=== PATIENT | female | born 1945 | race Two or more races ===

== ENCOUNTER 2024-09-05 16:38 | Emergency (ER) | payer OTHER, SELFPAY ==
[2024-09-05 17:01] VITALS: BP 153/74; PULSE 100; RESP 18; TEMP 36.6; O2SAT 96; BMI 27.4
--- NOTE | 2024-09-05 17:11 | EKG_ITS ---
[facility] Test Date: 2024-09-05 Pat Name: WOJCIECH ROMERO Department: Room: - Gender: Female [employer] Engineer: : 1945 Requested By: Lincoln Mcmahon (ISSA) Order Number: [id number] Reading MD: Lincoln Mcmahon (SECURITY OFFICER SUPERVISOR) Measurements Intervals [place] Rate: 91 P: 18 [place]: 124 QRS: -1 QRSD: 94 T: 43 QT: 349 QTc: 430 Interpretive Statements SINUS RHYTHM LEFT VENTRICULAR HYPERTROPHY AND ST-T CHANGE [VOLTAGE CRITERIA PLUS ST/T ABNORMALITY] Compared to ECG 11/05/2023 14:38:38 No significant changes /store/S0/[id number].pdf
--- NOTE | 2024-09-05 17:12 | PD.EDRME ---
Rapid Medical Screening Exam RME Arrival date/time: 09/05/24 16:38 79-year-old female presents [facility] with complaints of elevated blood sugar patient reports he was given 10 units of insulin at the doctor's office prior to arrival Chief Complaint: Recheck/Abnormal Lab/Rx Vital signs: Vital Signs Temperature 97.9 F 09/05/24 17:01 Pulse Rate 100 09/05/24 17:01 Respiratory Rate 18 09/05/24 17:01 Blood Pressure 153/74 H 09/05/24 17:01 Pulse Oximetry (%) 96 09/05/24 17:01 Oxygen Delivery Method Room Air 09/05/24 17:01
[2024-09-05 17:29] LABS: Basophils % (Auto) 1 % (0-2.5); Eosinophils # (Auto) 0.3 Thou/mm3 (0.0-0.5); Eosinophils % (Auto) 4 % (0-10); Hematocrit 38.1 % (36.0-46.0); Hemoglobin 13.5 g/dL (12.0-16.0); Immature Granulocytes % (Auto) 0 % (0-0); Immature Granulocytes Auto 0.02 Thou/mm3 (0.00-0.00); Lymphocytes # (Auto) 1.1 Thou/mm3 (1.0-4.8); Lymphocytes % (Auto) 17 % (10-50); Mean Corpuscular HGB Conc 35.4 g/dl (31.0-37.0); Mean Corpuscular Hemoglobin 30.4 pg (25.0-35.0); Mean Corpuscular Volume 86 fL (80-100); Monocytes # (Auto) 0.8 Thou/mm3 (0.0-0.8); Monocytes % (Auto) 13 % (0-12); Neutrophils # (Auto) 4.2 Thou/mm3 (1.8-7.7); Neutrophils % (Auto) 64 % (37-80); Nucleated Red Blood Cell % 0 /100 WBC (0); Platelet Count 76 Thou/mm3 (140-440); RDW Standard Deviation 46.4 fL (36.4-46.3); Red Blood Count 4.44 Miln/mm3 (4.00-5.20); White Blood Count 6.5 Thou/mm3 (3.6-11.0)
[2024-09-05 17:44] LABS: INR 1.1 (0.9-1.3); Partial Thromboplastin Time 27.3 Seconds (22.0-36.0)
[2024-09-05 17:52] LABS: Glucose Estimated Average 148 mg/dL (80-131); Hemoglobin A1C 6.8 % Hgb (4.8-6.0)
[2024-09-05 17:53] LABS: B-Type Natriuretic Peptide 26 pg/mL (0-100)
[2024-09-05 17:55] LABS: Alanine Aminotransferase 23 U/L (10-49); Albumin, Serum 4.1 gm/dL (3.4-4.8); Anion Gap 7 (7-16); Aspartate Amino Transferase 37 U/L (0-34); BUN/Creatinine Ratio 19 Ratio (12-20); Bilirubin,Total 1.8 mg/dL (0.3-1.2); Blood Urea Nitrogen 23 mg/dL (9-23); Calcium 10.3 mg/dL (8.3-10.6); Carbon Dioxide 26.6 mMol/L (20.0-31.0); Chloride 104 mMol/L (98-107); Creatinine (Component) 1.2 mg/dL (0.6-1.3); Estimated Creatinine Clearance 38.3 mL/min (>60); Glucose 285 mg/dL (74-106); Magnesium 1.9 mg/dL (1.6-2.6); Osmolality,Calculated 289 (275-295); Sodium 138 mMol/L (136-145); Total Protein 7.9 gm/dL (5.7-8.2); Troponin I < 0.020 ng/mL (0.0-0.045); eGFR 47 See Note
[2024-09-05 17:56] LABS: Albumin/Globulin Ratio 1.1 (1.2-2.2); Alkaline Phosphatase 143 U/L (46-116); Calcium (Corrected) 10.3 mg/dL (8.5-10.1); Globulin 3.8 gm/dL (2.3-3.5)
[2024-09-05 17:58] LABS: Slide Review Platelets confirmed
[2024-09-05 18:17] LABS: Collection Type, Urine Clean Catch
[2024-09-05 18:43] LABS: Bilirubin,Urine Negative (Negative); Blood,Urine Negative (Negative); Color,Urine Yellow (Lt Yel-Yel); Glucose, Urine 1+ (Negative); Hyaline Casts,Urine 1 /hpf (0-1); Ketones,Urine Trace (Negative); Leukocyte Esterase,Urine Positive (Negative); Nitrite,Urine Negative (Negative); PH,Urine 5.5 (5.0-7.0); Protein,Urine 1+ (Neg - Trace); RBC,Urine 5 /hpf (0-3); Specific Gravity,Urine 1.023 (1.001-1.035); Squamous Epithelial Cell,Urine 5 /hpf (0-5); WBC,Urine 49 /hpf (0-5)
[2024-09-05 18:45] LABS: Beta Hydroxybutyrate 0.2 mmol/L (<0.6)
[2024-09-05 18:47] LABS: Clarity,Urine Hazy (Clear/Hazy)
--- NOTE | 2024-09-05 19:04 | PD.EDRECHK ---
ED Recheck Abnl Lab Rx-RME/HPI General Chief Complaint: Recheck/Abnormal Lab/Rx Stated Complaint: SUGAR OVER [address] OFF[address] Time Seen by Provider: 09/05/24 18:55 Arrival date/time: 09/05/24 16:38 RME / HPI RME / HPI narrative: 79-year-old female patient with significant history of diabetes mellitus, liver cirrhosis, was sent to us from PCPs office, regarding blood sugar over 400. Currently patient is not having any symptoms. Patient told me that she is taking insulin. Denies any chest pain denies any vomiting denies any diarrhea denies any fever denies any cough denies any other complaints. Related Data Home Medications ?Medication ?Instructions ?Recorded ?Confirmed duloxetine 60 mg capsule,delayed 60 mg PO DAILY Depression 90 days 07/26/13 04/20/24 release (Cymbalta) ##0 rifaximin 550 mg tablet (Xifaxan) 200 mg PO BID 10/12/22 04/20/24 ferrous sulfate 325 mg (65 mg 325 mg PO BID 09/23/23 04/20/24 iron) tablet (iron) lactulose 10 gram/15 mL oral 60 ml PO TID 12/12/23 04/20/24 solution calcium 600 mg (as 1 tab PO QDAY 04/20/24 04/20/24 carbonate)-vitamin D3 10 mcg (400 unit) tablet linagliptin 5 mg tablet (Tradjenta) 5 mg PO QDAY 04/20/24 04/20/24 losartan 50 mg tablet 50 mg PO QDAY 04/20/24 04/20/24 Previous Rx's ?Medication ?Instructions ?Recorded omeprazole 40 mg capsule,delayed 40 mg PO BID 30 days #60 caps 10/12/22 release propranolol 10 mg tablet 10 mg PO BID 30 days #60 tabs 10/12/22 cefuroxime axetil 500 mg tablet 500 mg PO BID #14 tabs 09/05/24 Allergies Allergy/AdvReac Type Severity Reaction Status Date / Time No Known Allergies Allergy Verified 09/05/24 16:39 Review of Systems Review of Systems Narrative Review of Systems: Review of system reviewed and within normal limits except mentioned in HPI ED Exam Narrative Physical exam: VITAL SIGNS: Reviewed. GENERAL APPEARANCE: Alert and interactive, follows commands, no acute distress, HEAD AND FACE: Non-traumatic. ENT: PERRL, pink conjunctivitis, eyelid no trauma, Mucous membrane moist. NECK: Supple, nontender, no nuchal rigidity. CHEST: No tenderness, no crepitus, no paradoxical movement, no retractions. LUNGS: Clear, well ventilated, symmetric, no rales, no wheezing, no ronchi, no stridor, good breath sounds bilaterally. HEART: Regular rate, regular rhythm, no murmur, no gallops. ABDOMEN: Soft, positive bowel sounds, nondistended, no guarding, nontender, no rebound, no masses, RECTAL: Deferred. GENITAL: Deferred. NEUROLOGICAL: Gross motor function intact sensory function intact, Appropriate for age. MUSCULOSKELETAL: low back nontender, full range of motion. EXTREMITIES: Nontender, full range of motion. SKIN: Color pink, dry, no rash, no lacerations, no abrasions, no contusions. LYMPHATICS: Deferred. Course Quality Measures none Orders Category Date Time Status EKG (ED ONLY) *Do not use* NOW Care 09/05/24 17:11 Completed EKG (ED Only) Stat Exams 09/05/24 17:11 Draft A1C [Glycohemoglobin w (eAG)] Stat Lab 09/05/24 17:20 Completed B-Type Natriuretic Peptide Stat Lab 09/05/24 17:20 Completed Beta Hydroxybutyrate Stat Lab 09/05/24 17:20 Completed CBC Stat Lab 09/05/24 17:20 Completed Comprehensive Metabolic Panel Stat Lab 09/05/24 17:20 Completed Magnesium Stat Lab 09/05/24 17:20 Completed Partial Thromboplastin Time Stat Lab 09/05/24 17:20 Completed Prothrombin Time with INR Stat Lab 09/05/24 17:20 Completed Troponin I Stat Lab 09/05/24 17:20 Completed Urinalysis Stat Lab 09/05/24 17:53 Completed cephALEXin [Keflex] Med 09/05/24 19:09 Discontinued 500 mg PO X1 ONE Vital Signs Vital signs: Vital Signs Temperature 97.9 F 09/05/24 17:01 Pulse Rate 100 09/05/24 17:01 Respiratory Rate 18 09/05/24 17:01 Blood Pressure 153/74 H 09/05/24 17:01 Pulse Oximetry (%) 96 09/05/24 17:01 Oxygen Delivery Method Room Air 09/05/24 17:01 Recheck / Abnormal Lab / Rx MDM Narrative MDM Narrative:: 79-year-old female patient with significant history of diabetes mellitus, liver cirrhosis, was sent to us from PCPs office, regarding blood sugar over 400. Currently patient is not having any symptoms. Patient told me that she is taking insulin. Denies any chest pain denies any vomiting denies any diarrhea denies any fever denies any cough denies any other complaints. Patient's blood sugar was noted to be 285 with no sign of diabetic ketoacidosis. The rest of the labs unremarkable. Except for total bili of 1.8 alkaline phos of 143 urinalysis positive for UTI, results discussed with the patient family. Patient data External records reviewed:: None Clinical information provided by:: patient and family Social determinants that could affect healthcare access:: none Patient has the following chronic illnesses:: Liver cirrhosis, diabetes mellitus How is presenting disease/condition affected by chronic disease/condition?: exacerbated by Evaluation data The following diagnostics were reviewed and interpreted by me:: lab results and radiology exam(s) Lab and/or radiology exams considered but not ordered:: None Interpretation Summary: Patient's blood sugar was noted to be 285 with no sign of diabetic ketoacidosis. The rest of the labs unremarkable. Except for total bili of 1.8 alkaline phos of 143 urinalysis positive for UTI Medications / Prescriptions Medications or Prescriptions considered but not ordered:: None Medication administrations:: Medication Administration History Discontinued Medications Cephalexin HCl (Cephalexin 250 Mg Capsule) 500 mg PO X1 ONE Stop: 09/05/24 19:10 None Consultations Consultation(s) initiated? (list below): No Consultation #1 (Physician, Specialty, Details): None Diagnosis Recheck Differential Diagnosis: other (Hyperglycemia, UTI, dehydration) Most likely diagnosis given after review of the tests above:: Hyperglycemia, UTI Admission Indicated Admission indicated?: not indicated Explain why admission is indicated or not indicated:: Stable for discharge Admission Request Was there a request for admission?: No Disposition Plan Disposition Plan: Admit Discharge Plan Plan Patient Disposition: HOME (Self Care) Disposition Comment: Stable Prescriptions/Referrals Prescriptions/Med Rec: New cefuroxime axetil 500 mg tablet 500 mg PO BID Qty: 14 0RF No Action duloxetine [Cymbalta] 60 MG capsule,delayed release(DR/EC) 60 mg PO DAILY 90 Days Qty: 0 lactulose 10 gram/15 mL solution 60 ml PO TID Xifaxan 550 mg tablet 200 mg PO BID Patient Comments: TAKE ONE TABLET BY MOUTH TWICE DAILY propranolol 10 mg Tablet 10 mg PO BID 30 Days Qty: 60 2RF omeprazole 40 mg Capsule,Delayed Release(Dr/Ec) 40 mg PO BID 30 Days Qty: 60 2RF ferrous sulfate [iron] 325 mg (65 mg iron) Tablet 325 mg PO BID losartan 50 mg Tablet 50 mg PO QDAY calcium carbonate-vitamin D3 600 mg-10 mcg (400 unit) tablet 1 tab PO QDAY Patient Comments: TAKE ONE TABLET BY MOUTH TWICE DAILY Tradjenta 5 mg tablet 5 mg PO QDAY Patient Comments: TAKE 1 TABLET BY MOUTH EVERY DAY Referrals: Max CORDON),BARTOLOME Blancas [Primary Care Provider] - In 1 week Problem List Clinical Impression: Hyperglycemia, Diabetes mellitus, Family history of cirrhosis of liver, UTI (urinary tract infection) Patient/Caregiver Discharge Instructions Discharge Activity: activity as tolerated Education Materials: Understanding Carbohydrates Additional Instructions: Thank you for the opportunity for serving you today. You are stable for discharged . You are advised to: Follow-up with your PCP in 1 to 2 days Return to ED for worsening of symptoms Increase oral fluids Print Language: Guamanian Stand Alone Forms: [employer] Award Info., Patient Portal Info Letter GILLIAN/BARTOLOME Supervising Physician GILLIAN/BARTOLOME Supervising Physician: MD Tani
[2024-09-05 19:06] VITALS: BP 143/76; PULSE 89; RESP 18; TEMP 36.8; O2SAT 99
== END 2024-09-05 19:07 | disposition home or self-care (01) ==
PROVIDERS: Nurse Practitioner Primary Care; Emergency Provider Emergency Medicine; PCP Nurse Practitioner Primary Care
DX: E11.65 Type 2 diabetes mellitus with hyperglycemia (principal); N39.0 Urinary tract infection, site not specified; K74.60 Unspecified cirrhosis of liver; R94.31 Abnormal electrocardiogram [ECG] [EKG]; Z79.84 Long term (current) use of oral hypoglycemic drugs
CPT/HCPCS: 36415; 80053; 81001; 82010; 83036; 83735; 83880; 84484; 85025; 85610; 85730; 93005; 99283

== ENCOUNTER → 2024-09-19 | Outpatient (CLI) | payer OTHER, SELFPAY ==
--- NOTE | 2024-09-19 14:20 | XR_ITS ---
Examination: Bone densitometry Date and time of exam:September 19, 2024 1449 hours INDICATIONS: Postmenopausal Technique: Lumbar spine and hip total bone mineralization values of an calculated. Peak reference and age match control results have been displayed. Findings: Lumbar spine total bone mineralization is0.954 gm/cm2. This is 0.8 standard deviations below peak reference. This is 1.7 standard deviations above age-matched controls. Hip total bone mineralization is 0.873 gm/cm2 This is 0.7 standard deviations below peak reference. This is 1.3 standard deviations above age-matched controls Impression: There is normal mineralization based on lumbar spine measurements. There is osteopenia based on hip measurements Lumbar mineralization is increase 0.2% compared with October 17, 2019 Hip mineralization is decreased 7.5% compared with October 17, 2019.
== END | disposition home or self-care (01) ==
PROVIDERS: Referring Provider Internal Medicine; Visit Provider Internal Medicine
DX: M85.88 Other specified disorders of bone density and structure, other site (principal)
CPT/HCPCS: 77080

== ENCOUNTER → 2024-11-28 | Outpatient (CLI) | payer MEDICARE, MEDICAID, SELFPAY ==
--- NOTE | 2024-11-28 09:59 | XR_ITS ---
Examination: Bilateral hands, 5 views. Technique: Bilateral AP hands single view, right and left oblique and lateral hands 4 views total 5 views Date and time of exam: November 28, 2024 1001 hrs. Indications: Bilateral hand pain with radicular finger 3 months Findings: Significant osteopenia Bilateral mild to moderate diffuse narrowing joints of the wrists and hands Significant osteoarthritis bilaterally involving navicular trapezium first carpometacarpal joints and interphalangeal joints first digits Milder osteoarthritis distal interphalangeal joints second through fifth digits bilaterally No erosive arthritis No foreign bodies No fractures Impression: Bilateral osteoarthritis as above
--- NOTE | 2024-11-28 09:59 | XR_ITS ---
Examination: Wrist, 5 3 views Technique: Bilateral AP wrist single view Right and left wrist oblique and lateral views, 4 views, total 5 views Exam date and time: November 28, 2024 10:13 AM Indications: Bilateral wrist pain 3 months. Findings: Significant osteopenia Advanced osteoarthritis navicular trapezium first carpometacarpal joints bilaterally Significant bilateral osteoarthritis interphalangeal joints first digits No erosive arthritis No fractures Impression: Osteoarthritis as above
== END | disposition home or self-care (01) ==
LOC: CDIM 09:33
PROVIDERS: PCP Nurse Practitioner Primary Care; Referring Provider Nurse Practitioner Gerontology; Visit Provider Nurse Practitioner Gerontology
DX: M19.042 Primary osteoarthritis, left hand (principal); M19.041 Primary osteoarthritis, right hand; M18.0 Bilateral primary osteoarthritis of first carpometacarpal joints
CPT/HCPCS: 73110; 73130

== ENCOUNTER 2025-03-26 08:24 | Emergency (ER) | payer OTHER, MEDICAID, SELFPAY ==
[2025-03-26 08:25] VITALS: BMI 27.6
[2025-03-26 08:33] VITALS: BP 176/61; PULSE 79; RESP 18; TEMP 36.6; O2SAT 96
--- NOTE | 2025-03-26 08:50 | EDNOTE_ITS ---
<Statement entered by Pratima Tapia MD - 03/27/25 07:10> As co-signing physician, I was present and available for consult prn. I concur with the plan and care as documented by the midlevel provider. ED Animal Bite RME/HPI General Chief Complaint: Animal Bite Stated Complaint: SPIDER BITE L) FOOT Time Seen by Provider: 03/26/25 08:49 Source: patient and family Arrival date/time: 03/26/25 08:24 Mode of arrival: ambulatory Limitations: no limitations RME / HPI RME / HPI narrative: 79-year-old female with a known history of cirrhosis as well as diabetes and hypertension presents to the ED with complaint of a insect bite to the left middle toe that occurred yesterday at approximately 4 PM. At 9 PM patient developed body aches and a headache. complaint: other (Insect bite) Onset (ago): hour(s) (15) Animal: other (Insect) Mechanism: bite (Bite or sting) Location - Extremities: Left: foot (Left middle toe) Pain description: sharp Related Data Home Medications ?Medication ?Instructions ?Recorded ?Confirmed duloxetine 60 mg capsule,delayed 60 mg PO DAILY Depres flako 90 days 07/26/13 04/20/24 release (Cymbalta) ##0 rifaximin 550 mg tablet (Xifaxan) 200 mg PO BID 04/20/24 ferrous sulfate 325 mg (65 mg 325 mg PO BID 09/23/23 0 04/20/24 iron) tablet (iron) lactulose 10 gram/15 mL oral 60 ml PO TID 12/12/23 solution calcium 600 mg (as 1 tab PO QDAY 04/20/2404/20 carbonate)-vitamin D3 10 mcg (400 unit) tablet linagliptin 5 mg tablet (Tradjenta) 5 mg PO QDAY 04/2004/20/24 losartan 50 mg tablet 50 mg PO QDAY 04/20/2404/20 Previous Rx's ?Medication ?Instructions ?Recorded omeprazole 40 mg capsule,delayed 40 mg PO BID 30 days #60 caps 10/12/22 release propranolol 10 mg tablet 10 mg PO BID 30 days #60 tab s 10/12/22 cefuroxime axetil 500 mg tablet 500 mg PO BID #14 tabs 09/05/24 cephalexin 500 mg tablet 500 mg PO TID #30 tabs 03/26 Allergies Allergy/AdvReac Type Severity Reaction Status Date / Time No Known Allergies Allergy Verified 03/26/25 08:27 Review of Systems Constitutional Constitutional: Reports system reviewed and no additional complaints, except as documented Eyes Eyes: Reports system reviewed and no additional complaints, except as documented, Denies dry eyes, Denies exophthalmos and Reports floaters Cardiovascular Cardiovascular: Denies chest pain with activity and Denies claudication ED Exam Narrative Physical exam: Digit #3 of the left toe positive for 1 mm lesion. There is no apparent lymphadenopathy. There is no erythema and no edema of the left toe digit #3. Neurovascular is intact General Limitations: Present no limitations General appearance: Present alert and in no apparent distress Head Head exam: Present atraumatic Eye Eye exam: Present normal appearance and EOMI ENT ENT exam: Present normal exam, normal oropharynx and mucous membranes moist Neck Neck exam: Present normal inspection, full ROM and trachea midline Chest Chest inspection: Present normal inspection and symmetric chest wall rise Extremities Exam Extremities exam: Present full ROM and other (As described above) Back Exam Back exam: Present normal inspection and full ROM Neurological Exam Neurological exam: Present alert and oriented X3 Psychiatric Psychiatric exam: Present normal affect and normal mood Skin Skin exam: Present warm, dry, intact and normal color Course Course Course Narrative: Patient will have a CBC, CMP, UA, ammonia level. Quality Measures none (NA) Orders Category Date Time Status Ammonia Stat Lab 03/26/25 09:31 Completed CBC Stat Lab 03/26/25 09:31 Completed CMP [Comprehensive Metabolic Panel] Stat Lab 03/26/25 09:31 Completed UA, C/S IF [Urinalysis, C/S if Indicated] Stat Lab 03/26/25 09:11 Completed Urine Culture Stat Lab 03/26/25 09:11 Received CBC, CMP, UA, ammonia level Vital Signs Vital signs: Vital Signs Temperature 97.8 F 03/26/25 08:33 Pulse Rate 79 03/26/25 08:33 Respiratory Rate 18 03/26/25 08:33 Blood Pressure 176/61 H 03/26/25 08:33 Pulse Oximetry (%) 96 03/26/25 08:33 Oxygen Delivery Method Room Air 03/26/25 08:33 Pulse ox is 99% room air Animal Bite MDM Narrative MDM Narrative:: Patient will be discharged in no apparent distress and she has to follow-up primary care physician within 2 to 3 days of today's visit. She may return if worse or not better. Patient also has a urinary tract infection and she will be discharged with a prescription to the pharmacy of her choice for cephalexin 500 mg to be consumed 1 p.o. every 8 x 10 days. Patient data External records reviewed:: Other (specify) (NA) Clinical information provided by:: family Social determinants that could affect healthcare access:: none (NA) Patient has the following chronic illnesses:: Cirrhosis, hypertension, diabetes type 2 How is presenting disease/condition affected by chronic disease/condition?: no chronic disease (Cirrhosis) Evaluation data The following diagnostics were reviewed and interpreted by me:: lab results (Demonstrates a urinary tract infection) Lab and/or radiology exams considered but not ordered:: NA Interpretation Summary: NA Medications / Prescriptions Medications or Prescriptions considered but not ordered:: NA Medication administrations:: NA Consultations Consultation(s) initiated? (list below): No Consultation #1 (Physician, Specialty, Details): NA Diagnosis Differential diagnosis animal bite: other (Insect bite) Most likely diagnosis given after review of the tests above:: NA Admission Indicated Admission indicated?: not indicated Explain why admission is indicated or not indicated:: NA Admission Request Was there a request for admission?: No Admission Attestation Admission request attestation: NA Disposition Plan Disposition Plan: Discharge Discharge Attestation Discharge Attestation: The patient and all family members were given an opportunity to ask questions and understood the discharge instructions. Discharge instructions specifically effects, indications for sooner follow up or return to the emergency department, and the expected course of current diagnosis. Patient condition: Stable Discharge Plan Plan Patient Disposition: HOME (Self Care) Discharge Disposition comment: Discharge in no apparent distress Patient condition on transfer: Stable Prescriptions/Referrals Prescriptions/Med Rec: New cephalexin 500 mg tablet 500 mg PO TID Qty: 30 0RF No Action duloxetine [Cymbalta] 60 MG capsule,delayed release(DR/EC) 60 mg PO DAILY 90 Days Qty: 0 lactulose 10 gram/15 mL solution 60 ml PO TID Xifaxan 550 mg tablet 200 mg PO BID Patient Comments: TAKE ONE TABLET BY MOUTH TWICE DAILY propranolol 10 mg Tablet 10 mg PO BID 30 Days Qty: 60 2RF omeprazole 40 mg Capsule,Delayed Release(Dr/Ec) 40 mg PO BID 30 Days Qty: 60 2RF ferrous sulfate [iron] 325 mg (65 mg iron) Tablet 325 mg PO BID losartan 50 mg Tablet 50 mg PO QDAY calcium carbonate-vitamin D3 600 mg-10 mcg (400 unit) tablet 1 tab PO QDAY Patient Comments: TAKE ONE TABLET BY MOUTH TWICE DAILY Tradjenta 5 mg tablet 5 mg PO QDAY Patient Comments: TAKE 1 TABLET BY MOUTH EVERY DAY cefuroxime axetil 500 mg tablet 500 mg PO BID Qty: 14 0RF Referrals: Max ([facility]),CATALINA Blancas [Primary Care Provider] - In 1 week Problem List Clinical Impression: Insect bite, Urinary tract infection Impression comment: Urinary tract infection, insect bite Patient/Caregiver Discharge Instructions Discharge Activity: activity as tolerated Print Language: Congolese Stand Alone Forms: Edita Award Info., Patient Portal Info Letter PA/SNUFF DRIER Supervising Physician PA/SNUFF DRIER Supervising Physician: LULA
[2025-03-26 09:20] LABS: Collection Type, Urine Clean Catch
[2025-03-26 09:33] LABS: Bacteria,Urine 1+; Bilirubin,Urine Negative (Negative); Blood,Urine 1+ (Negative); Clarity,Urine Turbid (Clear/Hazy); Color,Urine Lt-Yellow (Lt Yel-Yel); Glucose, Urine Negative (Negative); Ketones,Urine Negative (Negative); Leukocyte Esterase,Urine Positive (Negative); Nitrite,Urine Negative (Negative); PH,Urine 6.0 (5.0-7.0); Protein,Urine 1+ (Neg - Trace); RBC,Urine 3 /hpf (0-3); Specific Gravity,Urine 1.012 (1.001-1.035); Squamous Epithelial Cell,Urine < 1 /hpf (0-5); Urobilinogen,Urine Negative mg/dL (0.0-1.0); WBC,Urine 50 /hpf (0-5)
[2025-03-26 09:46] LABS: Basophils # (Auto) 0.0 Thou/mm3 (0.0-0.2); Basophils % (Auto) 1 % (0-2.5); Eosinophils # (Auto) 0.3 Thou/mm3 (0.0-0.5); Eosinophils % (Auto) 5 % (0-10); Hematocrit 34.8 % (36.0-46.0); Hemoglobin 12.1 g/dL (12.0-16.0); Immature Granulocytes Auto 0.03 Thou/mm3 (0.00-0.00); Lymphocytes # (Auto) 0.7 Thou/mm3 (1.0-4.8); Lymphocytes % (Auto) 14 % (10-50); Mean Corpuscular HGB Conc 34.8 g/dl (31.0-37.0); Mean Corpuscular Hemoglobin 29.5 pg (25.0-35.0); Mean Corpuscular Volume 85 fL (80-100); Monocytes # (Auto) 0.7 Thou/mm3 (0.0-0.8); Monocytes % (Auto) 14 % (0-12); Neutrophils # (Auto) 3.3 Thou/mm3 (1.8-7.7); Neutrophils % (Auto) 65 % (37-80); Nucleated Red Blood Cell # 0.00 Thou/mm3 (0.00-0.00); Nucleated Red Blood Cell % 0 /100 WBC (0); Platelet Count 86 Thou/mm3 (140-440); RDW Standard Deviation 42.8 fL (36.4-46.3); Red Blood Count 4.10 Miln/mm3 (4.00-5.20); White Blood Count 5.1 Thou/mm3 (3.6-11.0)
[2025-03-26 10:01] LABS: Ammonia 49 uMol/L (11-32)
[2025-03-26 10:02] LABS: Alanine Aminotransferase 17 U/L (10-49); Albumin, Serum 3.9 gm/dL (3.4-4.8); Albumin/Globulin Ratio 1.1 (1.2-2.2); Alkaline Phosphatase 123 U/L (46-116); Anion Gap 11 (7-16); Aspartate Amino Transferase 37 U/L (0-34); BUN/Creatinine Ratio 14 Ratio (12-20); Bilirubin,Total 1.7 mg/dL (0.3-1.2); Blood Urea Nitrogen 14 mg/dL (9-23); Calcium 10.0 mg/dL (8.3-10.6); Calcium (Corrected) 10.1 mg/dL (8.5-10.1); Carbon Dioxide 22.5 mMol/L (20.0-31.0); Chloride 105 mMol/L (98-107); Creatinine (Component) 1.0 mg/dL (0.6-1.3); Estimated Creatinine Clearance 44.4 mL/min (>60); Globulin 3.4 gm/dL (2.3-3.5); Glucose 170 mg/dL (74-106); Osmolality,Calculated 280 (275-295); Potassium 4.4 mMol/L (3.4-5.1); Sodium 138 mMol/L (136-145); Total Protein 7.3 gm/dL (5.7-8.2); eGFR 58 See Note
[2025-03-26 11:08] LABS: Culture Indicated,Urine Yes
--- NOTE | 2025-03-26 12:56 | PC.NURSE ---
FAMILY ASKED WHEN PT WILL BE SEE FOR RESULTS. NOTE LEFT IN COMMENTS FOR PROVIDER TO REVIEW PT.
== END 2025-03-26 15:18 | disposition home or self-care (01) ==
PROVIDERS: Emergency Provider Physician Assistant; PCP Physician Assistant
DX: S90.465A Insect bite (nonvenomous), left lesser toe(s), initial encounter (principal); N39.0 Urinary tract infection, site not specified; W57.XXXA Bitten or stung by nonvenomous insect and other nonvenomous arthropods, initial encounter
CPT/HCPCS: 36415; 80053; 81001; 82140; 85025; 87077; 87086; 87186; 99283